=== PATIENT | female | born 1995 | race Caucasian/White ===

== ENCOUNTER → 2018-06-05 14:48 | Outpatient (CLI) | payer MEDICARE ==
[2018-06-05 17:28] LABS: APPEARANCE CLEAR (CLEAR); BILIRUBIN NEGATIVE (NEGATIVE); COLOR YELLOW (YELLOW); GLUCOSE NEGATIVE (NEGATIVE); KETONE NEGATIVE (NEGATIVE); NITRITE NEGATIVE (NEGATIVE); PROTEIN TRACE mg/dL (NEGATIVE); UROBILINOGEN NORMAL (NORMAL)
[2018-06-06 12:39] VITALS: BMI 48.1
== END | disposition home or self-care (01) ==
LOC: D.LDO 14:48
PROVIDERS: Obstetrics & Gynecology
DX: O26.899 Other specified pregnancy related conditions, unspecified trimester (principal); Z3A.00 Weeks of gestation of pregnancy not specified

== ENCOUNTER 2018-06-06 11:33 | Inpatient (IN) | payer MEDICARE ==
[~2018-06-06] VITALS: Ht 180.3 cm; Wt 156.0 kg
--- NOTE | ~2018-06-06 | OP ---
PATIENT NAME: KATHY ROBLES MEDICAL RECORD: [id number] LOCATION:[id number] ADMISSION DATE:06/06/18 SURGEON: DAMEON OLIVAREZ MD DATE OF OPERATION: 06/08/2018 PREOPERATIVE DIAGNOSES: 1. at 39 plus 6. 2. -induced hypertension. 3. Failure to progress. POSTOPERATIVE DIAGNOSES: 1. at 39 plus 6. 2. -induced hypertension. 3. Failure to progress. PROCEDURE: Primary low transverse section. SURGEON: Dameon Olivarez MD EXPRESSIVE THERAPIST: Dr. Elizalde. BASIN CLEANER: Parish Milligan. ANESTHETIC: Spinal. FINDINGS: Viable female , vertex presentation, Apgars 9 and 9, weight is 7 pounds 10 ounces. Unremarkable uterus, tubes, and ovaries with the exception of a small fibroid anteriorly on the uterus. SPECIMENS REMOVED: Placenta. SPECIMEN DISPOSITION: Discarded. ESTIMATED BLOOD LOSS: 850 cc. URINE: 350 cc. FLUIDS: 1700 cc lactated Ringer's. COMPLICATIONS: None. DRAIN: Mendiola to gravity. INDICATIONS: The patient is a 22-year-old G1, para 0 at 39 plus 6 weeks gestational age. The patient is induced and on hospital day #2 received amniotomy and continue Pitocin. The patient did advance in the early first stages of labor, but failed to progress after adequate MVU's for greater than 4 hours. The patient is consented for primary low transverse section. DESCRIPTION OF PROCEDURE: After informed consent was assured, the patient was taken to the operating room where anesthetic was obtained. The patient was prepped and draped. An assessment of anesthetic was found to be adequate. Incision was made at the Pfannenstiel site, carried down to the underlying layer of the fascia, which was opened in the midline and extended laterally. The rectus bellies was from the fascia and then they are in the OPERATIVE REPORT [id number] KATHY ROBLES midline. Peritoneum was opened and the Josiah O retractor inserted and tightened. The DeLee all-purpose retractors inserted and bladder flap developed. Low transverse hysterotomy was performed and the infant was delivered onto the abdomen atraumatically. Some atony was encountered and Methergine was given as well as Pitocin. The uterus was closed with a double layer. The initial layer was a running locked stitch of chromic. The second was an imbricating horizontal mattress of Vicryl. Fduxia-jx-tycat stitches applied at the midline and left corner of the incision site for hemostasis. Pelvis was irrigated, irrigant removed. The rectus bellies were reapproximated in the midline loosely and then the fascia was closed with looped PDS. Subcutaneous tissues were reapproximated with the stitch and rhea were applied. Sterile dressing is placed. Sponge, lap, and needle counts correct times 2. TRANSINT:[id number] Voice Confirmation ID: [id number] DOCUMENT ID: [id number] DAMEON OLIVAREZ MD at 0800 CC: [id number] DICTATION DATE: 06/08/181857 HUB BORER: 06/09/18 0224 DIS IN 06/10/18 [facility] [address] [place] [address]
[2018-06-06 12:28] LABS: BASOPHILS 0.1 % (0-2); EOSINOPHILS 1.1 % (0-7); HEMATOCRIT 37.4 % (36.0-48.0); HEMOGLOBIN 12.3 g/dL (12-16); IMMATURE GRANULOCYTES 0.4 % (0-5); LYMPHOCYTES 19.5 % (15-50); MCH 26.4 pg (26.0-34.0); MCHC 32.9 g/dL (31.0-37.0); MCV 80.3 fL (80.0-100.0); MEAN PLATELET VOLUME 9.3 fL (7.4-10.4); MONOCYTES 7.9 % (2-11); PLATELET COUNT 284 10x3/uL (130-400); RBC 4.66 10x6/uL (4.00-5.40); RDW 15.4 % (11.5-14.5); WBC 14.2 10x3/uL (4.8-10.8)
[2018-06-06 12:39] VITALS: BP 137/63; Ht 180.3 cm; Wt 156.0 kg
[2018-06-06 12:45] LABS: ALBUMIN 2.5 g/dL (3.4-5.0); ALKALINE PHOSPHATASE 105 U/L (46-116); ALT (SGPT) 9 U/L (10-68); BILIRUBIN - DIRECT 0.08 mg/dL (0.00-0.30); BILIRUBIN - INDIRECT 0.14 mg/dL (0.00-1.00); BILIRUBIN - TOTAL 0.22 mg/dL (0.2-1.3); CALC OSMOLALITY 268 mosm/kg (275-300); CALCIUM 9.1 mg/dL (8.5-10.1); CARBON DIOXIDE 20.1 mmol/L (21.0-32.0); CHLORIDE - SERUM 104 mmol/L (98-107); CREATININE - SERUM 0.5 mg/dL (0.6-1.3); GLUCOSE 86 mg/dL (74-106); POTASSIUM - SERUM 3.7 mmol/L (3.5-5.1); PROTEIN - SERUM 6.9 g/dL (6.4-8.2); SODIUM 136 mmol/L (136-145); UREA NITROGEN 8 mg/dL (7-18); URIC ACID 3.6 mg/dL (2.6-7.2); eGFR NON AFRICAN AMERICAN > 90 mL/min (90-120)
[2018-06-06 12:47] LABS: APPEARANCE CLEAR (CLEAR); BILIRUBIN NEGATIVE (NEGATIVE); COLOR YELLOW (YELLOW); GLUCOSE NEGATIVE (NEGATIVE); KETONE NEGATIVE (NEGATIVE); NITRITE NEGATIVE (NEGATIVE); PROTEIN TRACE mg/dL (NEGATIVE); UROBILINOGEN NORMAL (NORMAL)
[2018-06-06 12:48] LABS: BACTERIA MODERATE /hpf (NONE SEEN); EPITHELIAL CELLS 0-5 /hpf (0-5); MUCUS >1+ /lpf (NONE SEEN); WHITE CELLS - URINE 0-5 /hpf (0-5)
[2018-06-08 07:29] LABS: RAPID PLASMA REAGIN Non Reactive (Non Reactive)
[2018-06-08 19:31] VITALS: BP 136/79
[2018-06-08 20:12] VITALS: BP 134/83
[2018-06-08 21:12] VITALS: BP 134/67
[2018-06-09 00:05] VITALS: BP 124/71
[2018-06-09 06:30] LABS: BASOPHILS 0.1 % (0-2); EOSINOPHILS 0.9 % (0-7); HEMATOCRIT 31.1 % (36.0-48.0); HEMOGLOBIN 10.2 g/dL (12-16); IMMATURE GRANULOCYTES 0.4 % (0-5); LYMPHOCYTES 20.3 % (15-50); MCH 26.1 pg (26.0-34.0); MCHC 32.8 g/dL (31.0-37.0); MCV 79.5 fL (80.0-100.0); MEAN PLATELET VOLUME 9.4 fL (7.4-10.4); NEUTROPHILS 70.3 % (40-80); PLATELET COUNT 267 10x3/uL (130-400); RBC 3.91 10x6/uL (4.00-5.40); RDW 15.5 % (11.5-14.5); WBC 15.9 10x3/uL (4.8-10.8)
[2018-06-09 07:45] VITALS: BP 118/65
[2018-06-09 14:35] VITALS: BP 130/70
[2018-06-09 19:20] VITALS: BP 142/88
[2018-06-09 22:26] VITALS: BP 127/69
[2018-06-10 08:31] VITALS: BP 140/71
== END 2018-06-10 12:35 | disposition home or self-care (01) | DRG 788 ==
LOC: D.LD 11:33
PROVIDERS: Obstetrics & Gynecology
PROC: 10D00Z1 Extraction of Products of Conception, Low, Open Approach (ICD-10-PCS; principal; 2018-06-08 17:58)
DX: O13.4 Gestational [pregnancy-induced] hypertension without significant proteinuria, complicating childbirth (principal); Z3A.39 39 weeks gestation of pregnancy; Z37.0 Single live birth; O99.214 Obesity complicating childbirth; O62.1 Secondary uterine inertia

== ENCOUNTER 2020-09-15 15:03 | Emergency (ER) | payer OTHER ==
[~2020-09-15] VITALS: Ht 180.3 cm; Wt 136.4 kg
[2020-09-15 15:16] VITALS: Ht 180.3 cm; Wt 136.4 kg
[2020-09-15 15:53] LABS: BASOPHILS 0.2 % (0-2); HEMATOCRIT 41.3 % (36.0-48.0); IMMATURE GRANULOCYTES 0.1 % (0-5); LYMPHOCYTE ABS# 2.86 10x3/uL (1.18-3.74); MCH 27.6 pg (26.0-34.0); MCHC 33.9 g/dL (31.0-37.0); MCV 81.3 fL (80.0-100.0); MEAN PLATELET VOLUME 8.9 fL (7.4-10.4); MONOCYTES 6.1 % (2-11); NEUTROPHIL ABS# 6.49 10x3/uL (1.56-6.13); NEUTROPHILS 63.6 % (40-80); PLATELET COUNT 307 10x3/uL (130-400); RBC 5.08 10x6/uL (4.00-5.40); RDW 14.5 % (11.5-14.5); WBC 10.2 10x3/uL (4.8-10.8)
[2020-09-15 16:05] LABS: CALC OSMOLALITY 268 mosm/kg (275-300); CALCIUM 9.4 mg/dL (8.5-10.1); CARBON DIOXIDE 26.1 mmol/L (21.0-32.0); CHLORIDE - SERUM 100 mmol/L (98-107); CREATININE - SERUM 0.6 mg/dL (0.6-1.3); GLUCOSE 89 mg/dL (74-106); POTASSIUM - SERUM 3.8 mmol/L (3.5-5.1); SODIUM 136 mmol/L (136-145); UREA NITROGEN 7 mg/dL (7-18); eGFR NON AFRICAN AMERICAN > 90 mL/min (90-120)
[2020-09-15 16:20] LABS: HCG SERUM POSITIVE (NEGATIVE)
[2020-09-15 16:30] LABS: ALBUMIN 3.7 g/dL (3.4-5.0); ALKALINE PHOSPHATASE 65 U/L (30-120); ALT (SGPT) 53 U/L (10-68); BILIRUBIN - TOTAL 0.46 mg/dL (0.2-1.3); HCG - QUANTITATIVE (MATERNAL) 9412 mIU/mL; LIPASE 68 U/L (73-393); PROTEIN - SERUM 7.7 g/dL (6.4-8.2)
[2020-09-15 16:52] LABS: BILIRUBIN NEGATIVE (NEGATIVE); KETONE NEGATIVE (NEGATIVE); NITRITE NEGATIVE (NEGATIVE); UROBILINOGEN NORMAL mg/dL (< 2)
[2020-09-15 17:05] LABS: BACTERIA FEW HPF (NONE SEEN); SQUAMOUS EPITHELIAL 0-5 HPF (0-4); WHITE CELLS - URINE 0-5 HPF (0-4)
[2020-09-15] MEDS ORDERED: PEPCID AC20 MG PO (18:37)
[2020-09-15] MEDS ORDERED: REGLAN5 MG PO (18:37)
== END 2020-09-15 18:46 | disposition home or self-care (01) ==
LOC: D.ER 15:03
PROVIDERS: Family Medicine
DX: O20.0 Threatened abortion (principal); R10.9 Unspecified abdominal pain; N93.9 Abnormal uterine and vaginal bleeding, unspecified; Z3A.08 8 weeks gestation of pregnancy

== ENCOUNTER 2020-09-23 18:05 | Emergency (ER) | payer OTHER ==
[~2020-09-23] VITALS: Ht 180.3 cm; Wt 136.4 kg
[~2020-09-23 18:05] MED LIST: PEPCID AC20 MG PO; REGLAN5 MG PO
[2020-09-23 18:31] VITALS: Ht 180.3 cm; Wt 136.4 kg
[2020-09-23 18:55] LABS: BASOPHILS 0.2 % (0-2); EOSINOPHILS 2.6 % (0-7); HEMATOCRIT 40.3 % (36.0-48.0); HEMOGLOBIN 13.5 g/dL (12-16); IMMATURE GRANULOCYTES 0.2 % (0-5); LYMPHOCYTES 27.7 % (15-50); MCH 27.6 pg (26.0-34.0); MCHC 33.5 g/dL (31.0-37.0); MCV 82.2 fL (80.0-100.0); MEAN PLATELET VOLUME 8.8 fL (7.4-10.4); MONOCYTES 6.7 % (2-11); NEUTROPHILS 62.6 % (40-80); PLATELET COUNT 302 10x3/uL (130-400); RDW 14.4 % (11.5-14.5); WBC 9.7 10x3/uL (4.8-10.8)
[2020-09-23 19:10] LABS: HCG SERUM POSITIVE (NEGATIVE)
[2020-09-23 19:13] LABS: CALC OSMOLALITY 278 mosm/kg (275-300); CALCIUM 9.2 mg/dL (8.5-10.1); CARBON DIOXIDE 26.8 mmol/L (21.0-32.0); CHLORIDE - SERUM 103 mmol/L (98-107); CREATININE - SERUM 0.7 mg/dL (0.6-1.3); GLUCOSE 86 mg/dL (74-106); POTASSIUM - SERUM 4.6 mmol/L (3.5-5.1); SODIUM 141 mmol/L (136-145); UREA NITROGEN 9 mg/dL (7-18); eGFR NON AFRICAN AMERICAN > 90 mL/min (90-120)
[2020-09-23 19:21] LABS: ALBUMIN 3.7 g/dL (3.4-5.0); ALKALINE PHOSPHATASE 64 U/L (30-120); ALT (SGPT) 50 U/L (10-68); BILIRUBIN - TOTAL 0.47 mg/dL (0.2-1.3)
[2020-09-23 19:57] VITALS: BP 134/78
== END 2020-09-23 21:20 | disposition home or self-care (01) ==
LOC: D.ER 18:05
PROVIDERS: Family Medicine
DX: O20.8 Other hemorrhage in early pregnancy (principal); Z3A.00 Weeks of gestation of pregnancy not specified

== ENCOUNTER 2020-10-20 17:26 | Emergency (ER) | payer OTHER ==
[~2020-10-20] VITALS: Ht 180.3 cm; Wt 145.5 kg
[2020-10-20 17:31] VITALS: Ht 180.3 cm; Wt 145.5 kg
[2020-10-20 18:11] LABS: BASOPHILS 0.2 % (0-2); EOSINOPHILS 1.1 % (0-7); HEMATOCRIT 42.3 % (36.0-48.0); HEMOGLOBIN 14.1 g/dL (12-16); IMMATURE GRANULOCYTES 0.2 % (0-5); LYMPHOCYTE ABS# 2.45 10x3/uL (1.18-3.74); LYMPHOCYTES 22.1 % (15-50); MCH 27.8 pg (26.0-34.0); MCHC 33.3 g/dL (31.0-37.0); MCV 83.4 fL (80.0-100.0); MEAN PLATELET VOLUME 9.6 fL (7.4-10.4); NEUTROPHIL ABS# 7.68 10x3/uL (1.56-6.13); NEUTROPHILS 69.4 % (40-80); PLATELET COUNT 281 10x3/uL (130-400); RBC 5.07 10x6/uL (4.00-5.40); RDW 14.8 % (11.5-14.5); WBC 11.1 10x3/uL (4.8-10.8)
[2020-10-20 18:16] LABS: BILIRUBIN NEGATIVE (NEGATIVE); KETONE NEGATIVE (NEGATIVE); NITRITE NEGATIVE (NEGATIVE); UROBILINOGEN NORMAL mg/dL (< 2)
[2020-10-20 18:18] LABS: CALC OSMOLALITY 275 mosm/kg (275-300); CALCIUM 9.4 mg/dL (8.5-10.1); CARBON DIOXIDE 22.1 mmol/L (21.0-32.0); CHLORIDE - SERUM 103 mmol/L (98-107); CREATININE - SERUM 0.7 mg/dL (0.6-1.3); GLUCOSE 91 mg/dL (74-106); POTASSIUM - SERUM 3.9 mmol/L (3.5-5.1); SODIUM 139 mmol/L (136-145); UREA NITROGEN 8 mg/dL (7-18); eGFR NON AFRICAN AMERICAN > 90 mL/min (90-120)
[2020-10-20 18:22] LABS: UDS - AMPHET NEGATIVE QUAL (NEGATIVE); UDS - BARB NEGATIVE QUAL (NEGATIVE); UDS - BENZO NEGATIVE QUAL (NEGATIVE); UDS - COCAINE NEGATIVE QUAL (NEGATIVE); UDS - OPIATE NEGATIVE QUAL (NEGATIVE); UDS - PCP NEGATIVE QUAL (NEGATIVE); UDS - THC NEGATIVE QUAL (NEGATIVE)
[2020-10-20 18:50] LABS: ALBUMIN 3.4 g/dL (3.4-5.0); ALKALINE PHOSPHATASE 67 U/L (30-120); ALT (SGPT) 28 U/L (10-68); BILIRUBIN - TOTAL 0.47 mg/dL (0.2-1.3); HCG - QUANTITATIVE (MATERNAL) 47856 mIU/mL; MAGNESIUM - SERUM 1.9 mg/dL (1.8-2.4); PROTEIN - SERUM 7.1 g/dL (6.4-8.2)
[2020-10-20 21:09] VITALS: BP 115/67
[2020-10-20] MEDS ORDERED: REGLAN5 MG PO (21:45)
== END 2020-10-20 22:09 | disposition home or self-care (01) ==
LOC: D.ER 17:26
PROVIDERS: Emergency Medicine
DX: O45.91 Premature separation of placenta, unspecified, first trimester (principal); Z3A.11 11 weeks gestation of pregnancy; R55 Syncope and collapse; F41.9 Anxiety disorder, unspecified